=== PATIENT | female | born 1995 | race Caucasian/White ===

== ENCOUNTER 2017-02-14 17:57 | Emergency (ER) | payer OTHER ==
[~2017-02-14] VITALS: Ht 162.6 cm; Wt 74.4 kg
[2017-02-14 22:11] VITALS: BP 155/99
== END 2017-02-14 22:11 | disposition home or self-care (01) ==
LOC: ED 17:57
DX: L03.012 Cellulitis of left finger (principal)
CPT/HCPCS: J3490